=== PATIENT | male | born 1950 | race Caucasian/White ===

== ENCOUNTER 2019-10-16 13:57 | Emergency (ER) | payer MEDICARE ==
[~2019-10-16] VITALS: Ht 167.6 cm; Wt 66.0 kg
[2019-10-16] MEDS ORDERED: DIPHENHYDRAMINE 25MG CAPSULE PO NR (15:45)
[2019-10-16] MEDS ORDERED: PERMETHRIN 5% CREAM 60GM TOP ONE (17:15)
[2019-10-17 09:20] VITALS: BP 122/72
== END 2019-10-17 09:28 | disposition home or self-care (01) ==
LOC: ER 13:57
DX: B86 Scabies (principal); Z59.0 Homelessness
CPT/HCPCS: 99283; Q0163